=== PATIENT | female | born 1995 | race Caucasian/White ===

== ENCOUNTER 2017-07-22 08:21 | Day surgery (SDC) | payer OTHER ==
--- NOTE | 2017-07-15 03:38 | HP ---
PREOPERATIVE HISTORY AND PHYSICAL: DATE OF ADMISSION/SURGERY: 07/22/17 [facility] DATE OF OFFICE VISIT: 07/12/17 ATTENDING SURGEON: Freddie Chiang MD * (DICTATED BY VEGA ALEMAN) PROCEDURE: Right shoulder arthroscopic decompression, debridement, subpectoral biceps tenodesis. CHIEF COMPLAINT: Right shoulder. HISTORY OF PRESENT ILLNESS: Tahira is a 21-year-old female, who presents to clinic for right shoulder pain due to biceps tendinitis. She has failed conservative measures to include physical therapy and injection. Therefore, the patient has agreed to undergo right shoulder arthroscopic decompression, debridement, and subpectoral biceps tenodesis with Dr. Chiang on 07/22/17. PAST MEDICAL HISTORY: Exercise-induced asthma. PAST SURGICAL HISTORY: [place] teeth surgery. Denies prior complications with anesthesia. MEDICATIONS: 1. Ibuprofen 200 mg as needed. 2. Albuterol sulfate 2.5/3 mL 1 vial nebulizer 4 times a day as needed. 3. EpiPen 2-Iain 0.15 mg/0.3 mL injection beneath the skin as needed for anaphylaxis. 4. control 1 by mouth daily. ALLERGIES: No known drug allergies. She is allergic to BEE STINGS. FAMILY HISTORY: Denies pertinent family history. SOCIAL HISTORY: She lives in a dorm room. 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 She denies tobacco use. She reports occasional alcohol consumption. She denies illegal drug use. She is right-hand dominant. REVIEW OF SYSTEMS: A 14-point review of systems was reviewed with the patient. Positive for current complaint; otherwise, negative. Denies fevers, chills, chest pain, shortness of breath, history of bleeding disorder, history of DVT or PE. PHYSICAL EXAMINATION GENERAL: A 21-year-old, well-developed, well-nourished female, in no acute distress. Alert and oriented x3. Appropriate mood and affect. VITAL SIGNS: Height 65 weight 146. Pulse 70, blood pressure 90/66, respiratory rate 15, BMI 24.3. HEENT: Normocephalic, atraumatic. PERRLA. Throat: Clear. NECK: Supple. PULMONARY: Lungs are clear to auscultation bilaterally. No wheezing, rhonchi, or rales. CARDIO: Regular rate and rhythm. S1, S2. No murmurs, gallops, or rubs. No edema. ABDOMEN: Positive bowel sounds, soft, and nontender. NEURO: Alert and oriented x3. Cranial nerves grossly intact. Sensation is intact to light touch. MUSCULOSKELETAL: Right upper extremity, skin is intact. No warmth or erythema. Full range of motion. Positive impingement test. +5/5 strength. Positive Brookings's, Speed's, and Barnard-Mustapha. +2 radial pulse. Sensation intact to light touch distally. DIAGNOSTIC STUDIES: MRI of the right shoulder reveals fluid in the bicipital groove, the rotator cuff is intact. IMPRESSION: Right shoulder biceps tendinitis. PLAN: The patient is scheduled to undergo a right shoulder arthroscopic decompression, debridement, subpectoral biceps tenodesis with Dr. Chiang on . She will follow up 10 to 14 days postop for followup and suture removal. Percocet was sent to her pharmacy for postop pain management. VEGA ALEMAN [id number]/[facility] #: [id number] MTDD
[~2017-07-22 08:21] MED LIST: Buffered Lidocaine 0.9% SYRIN* 5 ML/SYR SYRINGE INTRADERM ONE; Dexamethasone IV* 4 MG/ML 1 ML (4 MG) IV SLOW PU ONE; Famotidine IV* 10 MG/ML 2 ML (20 mg) IV ONE
[2017-07-22] MEDS ORDERED: Dexamethasone IV* 4 MG/ML 1 ML (4 MG) ONE (08:43)
[2017-07-22] MEDS ORDERED: Famotidine IV* 10 MG/ML 2 ML (20 mg) ONE (08:43)
[2017-07-22] MEDS ORDERED: ceFAZolin 2 GM (*##) 2 GM/100 ML BAG USE CEFA2SOL IVPB ONE (08:43)
[2017-07-22] MEDS ORDERED: Bupivacaine 0.25% SDV* 30 ML ONE (10:11)
[2017-07-22] MEDS ORDERED: fentaNYL* 50 MCG/ML 2 ML VIAL (100 MCG VIAL) IV PRN (10:13)
[2017-07-22] MEDS ORDERED: HYDROcodone/ACETAMIN 5-325 MG* 1 TAB PO PRN (10:13)
[2017-07-22] MEDS ORDERED: Naloxone* 0.4 MG/ML 1 ML VIAL IV PRN (10:13)
[2017-07-22] MEDS ORDERED: Ketorolac INJ* 30 MG/ML 1 ML VIAL IV PRN (10:13)
[2017-07-22] MEDS ORDERED: oxyCODONE/Acetamin 5/325 MG* TAB PO PRN (10:13)
[2017-07-22] MEDS ORDERED: PROCHLORPERAZINE INJ 5 MG/ML 2 ML VIAL IV PRN (10:13)
[2017-07-22] MEDS ORDERED: ROPIVACAINE 5 MG/ML 30 ML BTL (0.5%) ONE (10:25)
[2017-07-22] MEDS ORDERED: fentaNYL* 50 MCG/ML 2 ML VIAL (100 MCG VIAL) ONE (10:25)
[2017-07-22] MEDS ORDERED: Midazolam* 1 MG/ML 2 ML VIAL (2 MG) ONE (10:25)
[2017-07-22] MEDS ORDERED: Propofol* 10 MG/ML 20 ML BTL IV PUSH ONE (10:28)
[2017-07-22] MEDS ORDERED: Lidocaine 2% PF * 5 ML VIAL ONE (10:28)
[2017-07-22] MEDS ORDERED: Mivacurium Chloride* 20 MG/10 ML VIAL IV ONE (10:30)
[2017-07-22] MEDS ORDERED: Ondansetron INJ* 2 MG/ML VIAL ONE (11:30)
[2017-07-22] MEDS ORDERED: EPHEDrine (Pressors)* 50 MG/ML VIAL ONE (11:32)
[2017-07-22 13:11] VITALS: BP 114/70
[2017-07-22] MEDS ORDERED: methylPREDNISolone ACETATE 80* 80 MG/ML 1 ML VIAL ONE (13:28)
--- NOTE | 2017-07-24 23:11 | OP ---
DATE OF OPERATION: 07/22/17 - [facility] DATE OF : 89 SURGEON: Freddie Chiang MD DRAFTER DETAIL: VEGA Mcbride. An emergency veterinary assistant was needed for the entirety of the case to help with positioning, retraction and was utilized throughout all portions of the case. ANESTHESIOLOGIST: Dr. Blackwell. ANESTHESIA: General interscalene block. PRE-OP DIAGNOSIS: Right shoulder SLAP tear with impingement. POST-OP DIAGNOSIS: Right shoulder SLAP tear with impingement. OPERATIVE PROCEDURE: 1. Right shoulder arthroscopy with glenohumeral debridement. 2. Subacromial decompression with acromioplasty. 3. Subpectoral biceps tenodesis. IMPLANTS: One 2.8 mm Q-Fix anchor. COMPLICATIONS: None. ESTIMATED BLOOD LOSS: Minimal. INDICATIONS: Tahira Saha is a 21-year-old female who had this superior labral tear with bicipital tendinitis. She has failed conservative management including physical therapy, anti-inflammatories, injections and she has had persistent pain, inability to get back to her prior level of activities. Risks and benefits of surgery were discussed at length included, but are not limited to bleeding, infection, damage to nerves, vessels, surrounding structures, wound nonhealing, persistent pain, need for further surgery, scarring, stiffness , incomplete relief of symptoms, and risk of anesthesia. DESCRIPTION OF PROCEDURE: The patient was greeted in the preoperative area by the attending surgeon. Correct extremity was marked and the consent was confirmed. She underwent interscalene nerve block by the anesthesiologist, after which she was brought back to the operating suite, she was placed in supine position in the operating table. She then underwent general anesthesia and endotracheal intubation after which she was properly positioned in the left lateral decubitus with axillary role. All bony prominences were padded. She was secured with pegboard. Right shoulder was draped unsterile with 10 pounds of traction. The right shoulder was then prepped and draped in the usual sterile fashion beginning with chlorhexidine soap scrub, and alcohol wipe and a final prep with ChloraPrep. After appropriate surgical pause indicating site, side, procedure and administration of antibiotics, the standard postero-lateral portal was made sharply with 11 blade. The scope was introduced into the joint. The joint was examined. There were grade 0 change to the glenohumeral joint. No evidence of anterior or posterior labral tear. There was evidence of a type 2 SLAP tear with displacement. The anterior portal was made in outside-in fashion. The shaver was used to debride back the superior labrum and a tenotomized biceps. The undersurface of the subscap was debrided back. There was sublabral foramen versus Belle complex that was debrided, but left intact. Once the debridement was complete, attention to subacromial space was done. Scope was introduced into the subacromial space. Lateral portal was made in outside-in fashion. Shaver was used to debride this back. The abundant bursa was then carefully removed. The undersurface of the electrocautery device was then used to skeletonize the undersurface of the acromion. The portal oval bur was used to debride to do an acromioplasty of the small anterolateral spur. All fluid and debris was removed from this portion. An 18-gauge needle was placed under arthroscopic visualization for later Depo-Medrol injection. Once this was completed, attention was directed to the biceps. The bed was airplaned to the right side. The anterior aspect of the shoulder was reprepped with ChloraPrep and incision in line with biceps tendon was then done with 15 blade. The soft tissues were carefully dissected. Once the fascia identified, the remainder of the dissection was done bluntly. The biceps was then palpated and brought through the wound with the right angle clamp. The biceps was done have abundant synovitis and erythema and present. The groove was palpated in the usual fashion and prepared in usual fashion with electrocautery device, the rasp, as well as the osteotome. The Q-Fix guide was then placed in the bicipital groove, then drilled unicortically. The Q-Fix anchor was placed with excellent purchase. The sutures were then passed through the biceps 1-cm proximal to the musculotendinous junction in a Wally- Delonte type configuration. The excess biceps was excised and then the suture was then passed, the biceps was then reduced back into the groove and then tied down. The wounds were copiously irrigated with sterile saline. The portals were irrigated. The portals were closed with 0 nylon. The anterior wound was closed in layers with 2-0 Vicryl and 3-0 Monocryl. The anterior wound was injected with 0.25% Marcaine plain. Sterile dressings were applied as well as the Cryo/Cuff and UltraSling. She was awoken from anesthesia and transferred to the PACU in stable condition. POSTOPERATIVE PLAN: She will be nonweightbearing. She will be in a sling for 4 weeks. She will be discharged with her pain medications and antibiotics. DVT prophylaxis was considered, but deferred due to no previous personal or family history. I will see the patient back in 2 weeks. [id number]/[facility] #: [id number] JIMMY
== END 2017-07-22 13:11 | disposition home or self-care (01) ==
LOC: OREAST 08:21
PROVIDERS: ATTEND Orthopaedic Surgery
DX: S46.101A Unspecified injury of muscle, fascia and tendon of long head of biceps, right arm, initial encounter (principal); M75.41 Impingement syndrome of right shoulder; Z91.030 Bee allergy status; X58.XXXA Exposure to other specified factors, initial encounter
CPT/HCPCS: 81025; C1776; J1040; J1100; J2250; J2405; J2704; J2795; J3010